=== PATIENT | male | born 1975 | race Caucasian/White ===

== ENCOUNTER 2019-03-20 19:05 | Emergency (ER) | payer OTHER ==
[2019-03-20 19:10] VITALS: BP 174/110; PULSE 92; TEMP 97.8; BMI 27.3
[2019-03-20] MEDS ORDERED: DEXAMETHASONE SOD PHOSPHATE 10 MG/1 ML VIAL IM ONE (19:48)
[2019-03-20] MEDS ORDERED: DOXYCYCLINE HYCLATE 100 MG CAPSULE PO ONE ×2 (19:48→19:59)
[2019-03-20] MEDS ORDERED: FAMOTIDINE 20 MG TABLET PO ONE (19:48)
[2019-03-20] MEDS ORDERED: DEXAMETHASONE SOD PHOSPHATE 10 MG/1 ML VIAL ONE (19:58)
[2019-03-20] MEDS ORDERED: FAMOTIDINE 20 MG TABLET ONE (19:58)
--- NOTE | 2019-03-20 20:00 | PDOC ---
History of Present Illness - General Chief Complaint: Abscess Boil Stated Complaint: SENT BY DOCTOR Time Seen by Provider: 03/20/19 19:24 History Source: Patient Exam Limitations: Clinical Condition - History of Present Illness Initial Comments: 03/20/19 19:55 Patient with past medical history of hypertension on amlodipine and losartan with hydrochlorothiazide presented with complaint of bug bite to back of neck and right earlobe for 2 days. Patient reported to have lots of spiders in his basement where he has his man cave and slipped there 2 days ago and he woke up with bites to posterior neck area. Patient slept again last night woke up this morning with bites to anterior neck area and right earlobe with yellow discoloration 2 x 2 area. Patient was seen in urgent care today for symptoms and advised to come to ED for evaluation. Patient reported did not take his blood pressure losartan medication today due to running out and was just referred by his PCP today which [facility]. Patient with elevated blood pressures on presentation which it is likely due to not taking his medication today. Denies fever, chills, dizziness, nausea, vomiting, palpitations, shortness of breath, chest pains. Denies any other symptoms Is this a multiple visit Asthma Patient?: No Past History - Past Medical History Allergies/Adverse Reactions: Allergies Allergy/AdvReac Type Severity Reaction Status Date / Time No Known Allergies Allergy Verified 03/20/19 19:10 Home Medications: Ambulatory Orders Doxycycline Hyclate 100 mg PO BID 10 Days #20 capsule 03/20/19 Famotidine [Pepcid -] 20 mg PO BID #14 tablet 03/20/19 Mupirocin Ointment [Bactroban 2% Ointment -] 1 applic TP BID 7 Days #1 tube 10/29 predniSONE [Deltasone -] 20 mg PO BID 5 Days #10 tablet 03/20/19 COPD: No HTN: Yes - Psycho Social/Smoking Cessation Hx Smoking History: Never smoked Review of Systems - Review of Systems Able to Perform ROS?: Yes Is the patient limited Citizen Of [place] proficient: No Constitutional: No: Chills, Fever, Malaise HEENTM: Yes: Symptoms Reported, See HPI, Ear Pain (swelling and pain to right earlobe). No: Eye Pain, Blurred Vision, Tearing, Recent change in vision, Double Vision, Cataracts, Ocular Prothesis, Ear Discharge, Nose Pain, Nose Congestion, Tinnitus, Nose Bleeding, Hearing Loss, Throat Pain, Throat Swelling , Mouth Pain, Dental Problems, Difficulty Swallowing, Mouth Swelling, Other Respiratory: No: Symptoms reported, See HPI, Cough, Orthopnea, Shortness of Breath, SOB with Exertion, SOB at Rest, Stridor, Wheezing, Productive cough, Hemoptysis, Other Cardiac (ROS): No: Symptoms Reported, See HPI, Chest Pain, Edema, Irregular Heart Rate, Lightheadedness, Palpitations, Syncope, Chest Tightness, Other ABD/GI: No: Symptoms Reported, See HPI, Nausea, Vomiting Musculoskeletal: No: Symptoms Reported, Joint Pain Integumentary: Yes: Symptoms Reported, See HPI, Erythema (redness and swelling to right earlobe), Lumps (multiple bites whiteside to posterior neck areas) Neurological: No: Symptoms reported, Headache, Dizziness Hematologic/Lymphatic: No: Swollen Glands All Other Systems: Reviewed and Negative *Physical Exam - Vital Signs Last Vital Signs Temp Pulse Resp BP Pulse Ox 97.8 F 92 H 18 174/110 H 98 03/20/19 19:08 03/20/19 19:08 03/20/19 19:08 03/20/19 19:08 03/20/19 19:08 - Physical Exam 03/20/19 20:00 GENERAL: Well developed, well nourished. Awake and alert. No acute distress. HEENT: Mild swelling and erythema to tragus and earlobe of right ear. Left ear normal normocephalic, atraumatic. PERRLA, EOMI. No conjunctival pallor. Sclera are non-icteric. Moist mucous membranes. Oropharynx is clear. NECK: Supple. Full ROM. CARDIOVASCULAR: Regular rate and rhythm. No murmurs, rubs, or gallops. Distal pulses are 2+ and symmetric. PULMONARY: No evidence of respiratory distress. Lungs clear to auscultation bilaterally. No wheezing, rales or rhonchi. MUSCULOSKELETAL Normal range of motion at all joints. SKIN: Warm and dry. Normal capillary refill. Multiple erythematous rash to posterior neck area and right side anterior neck area from bite whiteside from bug bite. Moderate swelling to tragus of right ear with diffuse erythema to right earlobe with mild yellow discoloration to bite area of bug bite. NEUROLOGICAL: Alert, awake, appropriate. Gait is normal without ataxia. PSYCHIATRIC: Cooperative. Good eye contact. Appropriate mood General Appearance: Yes: Nourished, Appropriately Dressed. No: Apparent Distress Medical Decision Making - Medical Decision Making 03/20/19 19:58 Patient with past medical history of hypertension on amlodipine and losartan with hydrochlorothiazide presented with complaint of bug bite to back of neck and right earlobe for 2 days. Patient reported to have lots of spiders in his basement where he has his man cave and slipped there 2 days ago and he woke up with bites to posterior neck area. Patient slept again last night woke up this morning with bites to anterior neck area and right earlobe with yellow discoloration 2 x 2 area. Patient was seen in urgent care today for symptoms and advised to come to ED for evaluation. Patient reported did not take his blood pressure losartan medication today due to running out and was just referred by his PCP today which he needs [facility]. Patient with elevated blood pressures on presentation which it is likely due to not taking his medication today. Denies fever, chills, dizziness, nausea, vomiting, palpitations, shortness of breath, chest pains. Denies any other symptoms Exam significant for multiple areas of bug bite to posterior neck area right anterior neck area with areas of yellow discoloration to bite area and mild swelling to right earlobe. Small yellow discoloration to tragus of right earlobe over bite area. Oropharynx patent. Patient afebrile. Patient symptoms likely allergic reaction versus cellulitis from bug bite. Decadron 10 mg IM and Benadryl 25 mg IM and Pepcid 40 mg p.o. ordered for allergic reaction. Doxycycline 100 mg p.o. given for cellulitis. Will observe patient for 20 minutes and reassess 03/20/19 20:41 Patient with mild improvement in erythema post Decadron Benadryl and Pepcid. Patient stable for outpatient management on doxycycline twice daily for 10 days for cellulitis and p.o. Pepcid and prednisone twice daily for a week for dermatitis with dermatology follow-up Discharge - Discharge Information Problems reviewed: Yes Clinical Impression/Diagnosis: Bug bite of face with infection Qualifiers: Encounter type: initial encounter Qualified Code(s): S00.86XA - Insect bite ( nonvenomous) of other part of head, initial encounter Cellulitis Qualifiers: Site of cellulitis: neck Qualified Code(s): L03.221 - Cellulitis of neck Condition: Stable Disposition: HOME - Admission No - Additional Discharge Information Prescriptions: Doxycycline Hyclate 100 mg PO BID 10 Days #20 capsule Famotidine [Pepcid -] 20 mg PO BID #14 tablet Mupirocin Ointment [Bactroban 2% Ointment -] 1 applic TP BID 7 Days #1 tube predniSONE [Deltasone -] 20 mg PO BID 5 Days #10 tablet - Follow up/Referral Referrals: Dora Dior MD [Staff Physician] - - Patient Discharge Instructions Patient Printed Discharge Instructions: DI for Cellulitis -- Adult Additional Instructions: Take prescribed medication as prescribed for rash and infection. Come back to emergency room if fever, worsening swelling as he might need IV antibiotics if fever. Otherwise follow-up with referred dermatology in 3 to 5 days for follow- up assessment - Post Discharge Activity
== END 2019-03-20 20:40 | disposition home or self-care (01) ==
LOC: JER 19:05 → JERFT 19:05
PROC: 3E0233Z Introduction of Anti-inflammatory into Muscle, Percutaneous Approach (ICD-10-PCS; principal; 2019-03-20)
PROC: 3E023GC Introduction of Other Therapeutic Substance into Muscle, Percutaneous Approach (ICD-10-PCS; 2019-03-20)
DX: S10.86XA Insect bite of other specified part of neck, initial encounter (principal); L03.221 Cellulitis of neck; W57.XXXA Bitten or stung by nonvenomous insect and other nonvenomous arthropods, initial encounter; Y93.89 Activity, other specified; Y92.018 Other place in single-family (private) house as the place of occurrence of the external cause; Y99.8 Other external cause status; I10 Essential (primary) hypertension
CPT/HCPCS: 99284-25; J1100